=== PATIENT | female | born 1940 | race Caucasian/White ===

== ENCOUNTER 2017-10-26 18:08 | Emergency (ER) | payer MEDICARE ==
[~2017-10-26] VITALS: Ht 154.9 cm; Wt 57.0 kg
[~2017-10-26 18:08] MED LIST: AMLO5TAB2 PO; ANAS1TAB PO; ASA PO; CALC1CAP8 PO; CHOL200024 PO; CLON1TAB23 PO; DOCU-131 PO; ESCI20TA PO; EZET10TA18 PO; HYDR-3237 PO; VIT1CAPS11 PO; VITAMIN B12 PO; [UNRECOGNIZED DRUG - REMARK] PO; [UNRECOGNIZED DRUG - REMARK] PO
[2017-10-26] MEDS ORDERED: KETOROLAC 30 MG/1 ML ONE (19:49)
[2017-10-26] MEDS ORDERED: KETOROLAC 30 MG/1 ML IM ONE (20:30)
[2017-10-26 21:40] VITALS: BP 127/61
== END 2017-10-26 21:41 | disposition home or self-care (01) ==
LOC: ED 21:32
DX: S51.811A Laceration without foreign body of right forearm, initial encounter (principal); S20.212A Contusion of left front wall of thorax, initial encounter; S16.1XXA Strain of muscle, fascia and tendon at neck level, initial encounter; S00.81XA Abrasion of other part of head, initial encounter; M06.9 Rheumatoid arthritis, unspecified; I10 Essential (primary) hypertension; W01.0XXA Fall on same level from slipping, tripping and stumbling without subsequent striking against object, initial encounter; Y93.89 Activity, other specified; Y92.89 Other specified places as the place of occurrence of the external cause; Y99.8 Other external cause status
CPT/HCPCS: 70450; 71111; 72125; 73090; 96372; 99284; J1885

== ENCOUNTER 2018-01-08 11:58 | Inpatient (IN) | payer MEDICARE ==
[~2018-01-08] VITALS: Ht 157.5 cm; Wt 54.8 kg
[2018-01-08] MEDS ORDERED: SODIUM CHLORIDE 0.9% 1,000ML IVBOLUS ONE (13:00)
[2018-01-08 13:04] LABS: MEAN CORPUSCULAR HEMOGLOBIN 26.3 pg (27.0-34.8); MEAN CORPUSCULAR HGB CONC 32.3 g/dL (32.4-35.8); MEAN CORPUSCULAR VOLUME 81.4 fL (80-100); MEAN PLATELET VOLUME 7.4 fL (7.4-10.4); PLATELET COUNT 171 x10^3/uL (130-400); RED BLOOD COUNT 6.01 x10^6/uL (3.82-5.3); RED CELL DISTRIBUTION WIDTH 15.1 % (9.6-15.2)
[2018-01-08 13:15] LABS: ALANINE AMINOTRANSFERASE 43 U/L (12-78); ALBUMIN 3.7 g/dL (3.4-5.0); ANION GAP 12 mmol/L (5-15); CHLORIDE 105 mmol/L (98-107)
[2018-01-08 13:17] LABS: ALKALINE PHOSPHATASE 169 U/L (45-117); BILIRUBIN,TOTAL 0.6 mg/dL (0.2-1.0); CREATININE 1.08 mg/dL (0.55-1.02); TOTAL PROTEIN 8.4 g/dL (6.4-8.2)
[2018-01-08 13:19] LABS: TROPONIN I < 0.015 ng/mL (0.000-0.045)
[2018-01-08 13:34] LABS: MD YES
[2018-01-08 13:35] LABS: BANDS%(MANUAL) 2 % (0-7)
[2018-01-08 13:37] LABS: <PLATELET ESTIMATE> ADEQUATE; <PLT MORPHOLOGY> NORMAL PLT MORPH; ANISOCYTOSIS 1+; EOS#(MANUAL) 0.05 x10^3/uL (0.0-0.4); EOS% (MANUAL) 1 % (1-7); LYMPH#(MANUAL) 3.28 x10^3/uL (1-3.4); LYMPHS% (MANUAL) 67 % (22-44); MICROCYTOSIS 1+; MONOS% (MANUAL) 2 % (2-9); REACTIVE LYMPHS # (MANUAL) 0.05 x10^3/uL (0-0); REACTIVE LYMPHS % (MANUAL) 1 % (0-0); SEG#(MANUAL) 1.32 x10^3/uL (1.8-6.8); SEGS% (MANUAL) 27 % (42-75)
[2018-01-08] MEDS ORDERED: LORazepam 2 MG/ML, 1ML ONE (13:42)
[2018-01-08] MEDS ORDERED: LORazepam 2 MG/ML, 1ML IVPush ONE (14:00)
[2018-01-08] MEDS ORDERED: SODIUM CHLORIDE FLUSH 10ML SYR IVF ONE (14:00)
[2018-01-08 14:17] LABS: FOLATE LEVEL 17.5 ng/mL (3.1-17.5)
[2018-01-08 15:17] LABS: MICROSCOPIC INDICATED
[2018-01-08 15:18] LABS: CULTURE INDICATED? YES
[2018-01-08 16:00] VITALS: BP 117/69
[2018-01-08] MEDS ORDERED: ONDANSETRON 2MG/ML, 2ML IVPush PRN (16:00)
[2018-01-08] MEDS ORDERED: DEXTROSE 50%, 50ML SYRINGE IVPush PRN (16:00)
[2018-01-08] MEDS ORDERED: POLYETHYLENE GLYCOL 17 GM PACKET PO PRN (16:00)
[2018-01-08] MEDS ORDERED: LABETALOL 5MG/ML, 20ML IVPush PRN (16:00)
[2018-01-08] MEDS ORDERED: DEXTROSE 4 GM TAB.CHEW PO PRN (16:00)
[2018-01-08] MEDS ORDERED: GLUCAGON 1 MG IM PRN (16:00)
[2018-01-08] MEDS ORDERED: ONDANSETRON ODT 4 MG PO PRN (16:00)
[2018-01-08] MEDS ORDERED: DOCUSATE 100 MG CAPSULE PO PRN (16:00)
[2018-01-08] MEDS ORDERED: ENALAPRILAT 1.25 MG/ML, 2ML IVPush PRN (16:00)
[2018-01-08] MEDS ORDERED: ACETAMINOPHEN 325 MG TABLET PO PRN (16:00)
[2018-01-08] MEDS: HEPARIN 5,000 UNITS/ML, 1ML SQ SCH (16:37)
[2018-01-08] MEDS: D5%-0.45% NACL 1,000 ML IV SCH (16:40)
[2018-01-08] MEDS ORDERED: OMNIPAQUE 350 MG/ML, 100ML BOTTLE ONE (18:23)
[2018-01-08 19:08] VITALS: BP 122/79
[2018-01-08] MEDS ORDERED: AMLODIPINE 5 MG TABLET PO SCH (21:00)
[2018-01-08] MEDS: SODIUM CHLORIDE FLUSH 10ML SYR IVF SCH (21:03)
[2018-01-09] MEDS: HEPARIN 5,000 UNITS/ML, 1ML SQ SCH ×2 (00:11→07:57)
[2018-01-09 01:24] VITALS: BP 110/76
[2018-01-09] MEDS: D5%-0.45% NACL 1,000 ML IV SCH (03:17)
[2018-01-09 05:53] LABS: ANION GAP 7 mmol/L (5-15); CALCIUM 7.3 mg/dL (8.5-10.1); CHLORIDE 108 mmol/L (98-107); CREATININE 0.67 mg/dL (0.55-1.02)
[2018-01-09 06:21] LABS: BASOPHILS # (AUTO) 0.02 x10^3/uL (0-0.1); BASOPHILS % (AUTO) 1 % (0-1); EOSINOPHILS # (AUTO) 0.09 x10^3/uL (0-0.4); EOSINOPHILS % (AUTO) 2 % (1-7); LYMPHOCYTES # (AUTO) 2.66 x10^3/uL (1-3.4); LYMPHOCYTES % (AUTO) 72 % (22-44); MD NO; MEAN CORPUSCULAR HEMOGLOBIN 27.2 pg (27.0-34.8); MEAN CORPUSCULAR HGB CONC 32.6 g/dL (32.4-35.8); MEAN CORPUSCULAR VOLUME 83.4 fL (80-100); MEAN PLATELET VOLUME 7.9 fL (7.4-10.4); MONOCYTES # (AUTO) 0.44 x10^3/uL (0.2-0.8); MONOCYTES % (AUTO) 12 % (2-9); NEUTROPHILS # (AUTO) 0.47 x10^3/uL (1.8-6.8); NEUTROPHILS % (AUTO) 13 % (42-75); PLATELET COUNT 70 x10^3/uL (130-400); RED BLOOD COUNT 3.82 x10^6/uL (3.82-5.3); RED CELL DISTRIBUTION WIDTH 15.4 % (9.6-15.2)
[2018-01-09 06:59] VITALS: BP 111/76
[2018-01-09] MEDS ORDERED: POTASSIUM CHLORIDE 20 MEQ TAB.ER.PRT PO ONE (07:30)
[2018-01-09] MEDS ORDERED: MAGNESIUM OXIDE 400 MG TABLET PO ONE (07:30)
[2018-01-09] MEDS ORDERED: INSULIN LISPRO 100 UNITS/ML, PEN SQ-INSULIN SCH (07:30)
[2018-01-09] MEDS: SODIUM CHLORIDE FLUSH 10ML SYR IVF SCH (07:58)
[2018-01-09] MEDS ORDERED: MULTIVITS,STRESS FORMULA 1 TABLET PO SCH (09:00)
[2018-01-09] MEDS ORDERED: CALCIUM/VITAMIN D3 250-125 TABLET PO SCH (09:00)
[2018-01-09] MEDS ORDERED: SULFAMETH./TRIMETHOPRIM DS 800MG/160MG TABLET PO SCH (09:00)
[2018-01-09] MEDS ORDERED: CITALOPRAM 20 MG TABLET PO SCH (09:00)
[2018-01-09] MEDS ORDERED: ASPIRIN 81 MG TABLET EC PO SCH (09:00)
[2018-01-09] MEDS ORDERED: EZETIMIBE 10 MG TABLET PO SCH (09:00)
[2018-01-09] MEDS ORDERED: CYANOCOBALAMIN 1,000 MCG TABLET PO SCH (09:00)
[2018-01-09 12:32] VITALS: BP 102/70
[2018-01-09] MEDS ORDERED: CLON1TAB23 PO (14:35)
[2018-01-09] MEDS ORDERED: SULF-169 PO (15:00)
[2018-01-09 15:44] VITALS: BP 108/72
== END 2018-01-09 15:30 | disposition home or self-care (01) | DRG 683 ==
LOC: ED 14:12 → EDIP 14:52 → 4NOR 15:50
PROVIDERS: ADMIT Family Medicine; ATTEND Family Medicine
DX: N17.9 Acute kidney failure, unspecified (principal); F13.239 Sedative, hypnotic or anxiolytic dependence with withdrawal, unspecified; E86.0 Dehydration; M06.9 Rheumatoid arthritis, unspecified; N39.0 Urinary tract infection, site not specified; R62.7 Adult failure to thrive; E78.5 Hyperlipidemia, unspecified; F32.9 Major depressive disorder, single episode, unspecified; F17.200 Nicotine dependence, unspecified, uncomplicated; F41.1 Generalized anxiety disorder; R73.9 Hyperglycemia, unspecified; I10 Essential (primary) hypertension; Z85.3 Personal history of malignant neoplasm of breast; Z90.13 Acquired absence of bilateral breasts and nipples; Z68.22 Body mass index [BMI] 22.0-22.9, adult; R63.4 Abnormal weight loss
CPT/HCPCS: 36415; 71045; 71260; 74177; 80048; 80053; 81001; 82607; 82746; 82962; 83735; 84443; 84484; 85025; 87086; 87186; 93005; 96361; 96374; J1644; Q9967; J2060; J7030

== ENCOUNTER 2019-03-13 09:52 | Inpatient (IN) | payer MEDICARE ==
[~2019-03-13] VITALS: Ht 157.5 cm; Wt 58.0 kg
[~2019-03-13 09:52] MED LIST changes: +AMLO-150 PO; -AMLO5TAB2 PO; +SULF-169 PO
--- NOTE | 2019-03-13 10:20 | NUR ---
PT NOTED TO HAVE SWELLING AND ERYTHEMA RIGHT ELBOW. PT STATES SHE FELL DOWN A FEW STEPS LAST NIGHT. DENIES PAIN ELSEWHERE
[2019-03-13] MEDS ORDERED: ONDANSETRON 2MG/ML, 2ML IVPush ONE (10:30)
[2019-03-13] MEDS ORDERED: HYDROmorphone 2 MG/ML, 1ML IVPush PRN (10:30)
[2019-03-13] MEDS ORDERED: DIPH,PERTUSS(ACELL),TET VAC/PF 0.5 ML IM-VACC ONE ×2 (10:30→10:59)
[2019-03-13] MEDS ORDERED: HYDROmorphone 2 MG/ML, 1ML ONE (10:58)
[2019-03-13] MEDS ORDERED: ONDANSETRON 2MG/ML, 2ML ONE (10:58)
[2019-03-13 11:01] LABS: BASOPHILS # (AUTO) 0.02 x10^3/uL (0-0.1); BASOPHILS % (AUTO) 1 % (0-1); EOSINOPHILS # (AUTO) 0.07 x10^3/uL (0-0.4); EOSINOPHILS % (AUTO) 2 % (1-7); LYMPHOCYTES # (AUTO) 1.58 x10^3/uL (1-3.4); LYMPHOCYTES % (AUTO) 42 % (22-44); MD NO; MEAN CORPUSCULAR HEMOGLOBIN 26.7 pg (27.0-34.8); MEAN CORPUSCULAR HGB CONC 33.5 g/dL (32.4-35.8); MEAN CORPUSCULAR VOLUME 79.7 fL (80-100); MEAN PLATELET VOLUME 7.4 fL (7.4-10.4); MONOCYTES % (AUTO) 11 % (2-9); NEUTROPHILS # (AUTO) 1.68 x10^3/uL (1.8-6.8); NEUTROPHILS % (AUTO) 45 % (42-75); PLATELET COUNT 108 x10^3/uL (130-400); RED BLOOD COUNT 4.72 x10^6/uL (3.82-5.3); RED CELL DISTRIBUTION WIDTH 17.8 % (9.6-15.2)
[2019-03-13 11:09] LABS: ALBUMIN 3.3 g/dL (3.4-5.0); ANION GAP 4 mmol/L (5-15); CALCIUM 8.6 mg/dL (8.5-10.1); CHLORIDE 111 mmol/L (98-107)
[2019-03-13 11:13] LABS: INTERNATIONAL NORMALIZED RATIO 1.02 (0.93-1.1); PROTHROMBIN TIME 10.7 Seconds (9.6-11.5)
--- NOTE | 2019-03-13 11:18 | NUR ---
SON AT BEDSIDE. DISCUSSING RESULTS OF XRAY AND NEED FOR ADMISSION AND SURGERY.
[2019-03-13] MEDS ORDERED: BACITRACIN ZINC OINT 500U/GM, 0.9 GM ONE (11:52)
--- NOTE | 2019-03-13 11:57 | NUR ---
REPORT TO PAOLO HOLLAND. PT TO BE TRANSPORTED AFTER SPLINTING
[2019-03-13] MEDS ORDERED: DOCUSATE 100 MG CAPSULE PO PRN (12:00)
--- NOTE | 2019-03-13 12:02 | NUR ---
TECH AT BEDSIDE SPLINTING RIGHT ARM
[2019-03-13 12:36] VITALS: BP 98/61
[2019-03-13] MEDS: LACTATED RINGERS 1,000 ML IV SCH ×2 (13:29→23:28)
[2019-03-13] MEDS: OXYcodone/APAP 5/325MG TABLET PO PRN ×2 (15:48→23:58)
[2019-03-13 19:26] VITALS: BP 99/67
[2019-03-13] MEDS: ACETAMINOPHEN 325 MG TABLET PO PRN (20:05)
[2019-03-13] MEDS: AMLODIPINE 5 MG TABLET PO SCH (20:06)
[2019-03-14 03:29] VITALS: BP 103/69
[2019-03-14] MEDS: ACETAMINOPHEN 325 MG TABLET PO PRN (03:46)
[2019-03-14 07:03] VITALS: BP 113/75
[2019-03-14] MEDS: EZETIMIBE 10 MG TABLET PO SCH (08:05)
[2019-03-14] MEDS: OXYcodone/APAP 5/325MG TABLET PO PRN ×3 (09:55→19:31)
[2019-03-14] MEDS: LACTATED RINGERS 1,000 ML IV SCH ×2 (09:57→19:33)
[2019-03-14 12:19] VITALS: BP 118/66
[2019-03-14] MEDS: AMLODIPINE 5 MG TABLET PO SCH (20:36)
[2019-03-14 20:37] VITALS: BP 118/69
[2019-03-15 03:02] VITALS: BP 123/71
[2019-03-15] MEDS: LACTATED RINGERS 1,000 ML IV SCH (03:15)
[2019-03-15] MEDS: OXYcodone/APAP 5/325MG TABLET PO PRN ×4 (03:15→21:29)
[2019-03-15] MEDS ORDERED: ALENDRONATE 70 MG TABLET PO SCH (06:30)
[2019-03-15 06:50] VITALS: BP 105/62
[2019-03-15 07:54] LABS: BASOPHILS # (AUTO) 0.02 x10^3/uL (0-0.1); BASOPHILS % (AUTO) 1 % (0-1); EOSINOPHILS # (AUTO) 0.11 x10^3/uL (0-0.4); EOSINOPHILS % (AUTO) 4 % (1-7); LYMPHOCYTES # (AUTO) 1.61 x10^3/uL (1-3.4); LYMPHOCYTES % (AUTO) 59 % (22-44); MD SCAN; MEAN CORPUSCULAR HEMOGLOBIN 26.7 pg (27.0-34.8); MEAN CORPUSCULAR HGB CONC 32.8 g/dL (32.4-35.8); MEAN CORPUSCULAR VOLUME 81.2 fL (80-100); MEAN PLATELET VOLUME 7.6 fL (7.4-10.4); MONOCYTES # (AUTO) 0.21 x10^3/uL (0.2-0.8); MONOCYTES % (AUTO) 8 % (2-9); NEUTROPHILS # (AUTO) 0.79 x10^3/uL (1.8-6.8); NEUTROPHILS % (AUTO) 29 % (42-75); PLATELET COUNT 75 x10^3/uL (130-400); RED BLOOD COUNT 3.54 x10^6/uL (3.82-5.3); RED CELL DISTRIBUTION WIDTH 17.5 % (9.6-15.2)
[2019-03-15] MEDS: EZETIMIBE 10 MG TABLET PO SCH (08:22)
[2019-03-15 12:15] VITALS: BP 114/61
[2019-03-15 20:35] VITALS: BP 110/69
[2019-03-15] MEDS: AMLODIPINE 5 MG TABLET PO SCH (21:00)
[2019-03-16 01:35] VITALS: BP 126/83
[2019-03-16] MEDS: OXYcodone/APAP 5/325MG TABLET PO PRN ×2 (01:54→12:29)
[2019-03-16 07:37] VITALS: BP 108/66
[2019-03-16] MEDS ORDERED: LORazepam 2 MG/ML, 1ML IV PRN ×5 (08:00)
[2019-03-16] MEDS ORDERED: THIAMINE 200 MG in DEXTROSE 5% 50 ML IVPB ONE (08:00)
[2019-03-16] MEDS ORDERED: POTASSIUM CHLORIDE 20 MEQ in LACTATED RINGERS 1,000 ML IV SCH (08:00)
[2019-03-16] MEDS ORDERED: FOLIC ACID 5 MG/ML IM ONE (08:00)
[2019-03-16] MEDS: EZETIMIBE 10 MG TABLET PO SCH (08:04)
[2019-03-16] MEDS ORDERED: CHOLECALCIFEROL 5,000u TAB PO SCH (09:00)
[2019-03-16 12:14] VITALS: BP 119/81
[2019-03-16] MEDS ORDERED: OXYC1TAB7 PO (12:41)
[2019-03-16] MEDS ORDERED: CHOL500015 PO (12:41)
[2019-03-16] MEDS ORDERED: ALEN70TA6 PO (12:41)
== END 2019-03-16 13:30 | disposition home or self-care (01) | DRG 543 ==
LOC: ED 10:57 → 4NOR 11:22 → DCLOUNGE 03-16 13:05
PROVIDERS: ADMIT Family Medicine; ATTEND Family Medicine
DX: M80.021A Age-related osteoporosis with current pathological fracture, right humerus, initial encounter for fracture (principal); D61.818 Other pancytopenia; F10.239 Alcohol dependence with withdrawal, unspecified; E44.0 Moderate protein-calorie malnutrition; E78.00 Pure hypercholesterolemia, unspecified; Y90.9 Presence of alcohol in blood, level not specified; F17.200 Nicotine dependence, unspecified, uncomplicated; F41.1 Generalized anxiety disorder; I10 Essential (primary) hypertension; K74.60 Unspecified cirrhosis of liver; M06.9 Rheumatoid arthritis, unspecified; S61.214A Laceration without foreign body of right ring finger without damage to nail, initial encounter; Z90.710 Acquired absence of both cervix and uterus; Z85.3 Personal history of malignant neoplasm of breast; W10.9XXA Fall (on) (from) unspecified stairs and steps, initial encounter; Y93.89 Activity, other specified; Y92.89 Other specified places as the place of occurrence of the external cause; Y99.8 Other external cause status; Z68.23 Body mass index [BMI] 23.0-23.9, adult
CPT/HCPCS: 36415; 80048; 80307; 82040; 82306; 85025; 85610; 90471; 90715; 93005; 96374; 96375; 99285; G0378; J1170; J2405; J3411; J3480; J7120

== ENCOUNTER 2019-03-18 13:27 | Inpatient (IN) | payer MEDICARE ==
[~2019-03-18] VITALS: Ht 157.5 cm; Wt 64.2 kg
[~2019-03-18 13:27] MED LIST changes: +ALEN70TA6 PO; +CHOL500015 PO; +OXYC1TAB7 PO
[2019-03-18 14:07] VITALS: BP 113/77
[2019-03-18] MEDS ORDERED: LACTATED RINGERS 1,000 ML IV SCH (14:12)
[2019-03-18] MEDS ORDERED: PLEASE ENTER HEIGHT AND WEIGHT MC SCH (14:30)
[2019-03-18] MEDS ORDERED: OXYC1TAB7 PO (15:51)
[2019-03-18] MEDS ORDERED: ASPI-515 PO (15:51)
[2019-03-18] MEDS ORDERED: EZET10TA18 PO (15:51)
[2019-03-18] MEDS ORDERED: ALEN70TA6 PO (15:51)
[2019-03-18] MEDS ORDERED: CHOL20002 PO (15:51)
[2019-03-18] MEDS ORDERED: CLON1TAB23 PO (15:51)
[2019-03-18] MEDS ORDERED: BUPIVACAINE LIPOSOME/PF 10ML INFIL ONE (16:00)
[2019-03-18] MEDS ORDERED: FENTANYL PF 250 MCG/5ML ONE ×2 (16:02→18:08)
[2019-03-18] MEDS ORDERED: BUPIVACAINE/PF-EPI 0.5% 1:200K ONE (16:27)
[2019-03-18] MEDS ORDERED: ONDANSETRON 2MG/ML, 2ML ONE (16:53)
[2019-03-18] MEDS ORDERED: ROCURONIUM 10MG/ML,5ML ONE (16:53)
[2019-03-18] MEDS ORDERED: DEXAMETHASONE 4 MG/ML, 1ML ONE (16:53)
[2019-03-18] MEDS ORDERED: PROPOFOL 10 MG/ML, 20ML ONE (16:53)
[2019-03-18] MEDS ORDERED: SODIUM CHLORIDE 0.9% 1,000 ML IV SCH (16:53)
[2019-03-18] MEDS ORDERED: morphine SULFATE 10 MG/ML, 1ML IVPush PRN (17:00)
[2019-03-18] MEDS: NICOTINE 7 MG/24 HR PATCH.TD24 TD SCH (17:00)
[2019-03-18] MEDS ORDERED: hydrALAzine 20 MG/ML, 1ML IVPush PRN (17:00)
[2019-03-18] MEDS ORDERED: ONDANSETRON 2MG/ML, 2ML IVPush PRN (17:00)
[2019-03-18] MEDS ORDERED: hydrALAzine 20 MG/ML, 1ML IV PRN (18:30)
[2019-03-18] MEDS ORDERED: ALBUTEROL SULFATE 2.5 MG/3 ML NPPB PRN (18:30)
[2019-03-18] MEDS ORDERED: HALOPERIDOL 5 MG/ML IV PRN (18:30)
[2019-03-18] MEDS ORDERED: OXYcodone 5 MG/5 ML ORAL.SOL UDC PO PRN (18:30)
[2019-03-18] MEDS ORDERED: LABETALOL 5MG/ML, 20ML IV PRN (18:30)
[2019-03-18] MEDS ORDERED: PROMETHAZINE 25 MG/ML, 1ML IV PRN (18:30)
[2019-03-18] MEDS ORDERED: VANCOMYCIN 1,000 MG ONE (18:40)
[2019-03-18] MEDS ORDERED: OXYcodone 5 MG/5 ML ORAL.SOL UDC ONE (19:16)
[2019-03-18] MEDS ORDERED: FENTANYL PF 100 MCG/2ML ONE (19:16)
[2019-03-18] MEDS ORDERED: HYDROmorphone 2 MG/ML, 1ML ONE (19:16)
[2019-03-18] MEDS: FENTANYL PF 100 MCG/2ML IV PRN ×2 (19:21→19:36)
[2019-03-18] MEDS: HYDROmorphone 2 MG/ML, 1ML IVPush PRN ×2 (19:22→19:36)
[2019-03-18] MEDS ORDERED: OXYcodone/APAP 5/325MG TABLET PO PRN (23:00)
[2019-03-19 00:05] VITALS: BP 93/59
[2019-03-19] MEDS: OXYcodone/APAP 5/325MG TABLET PO PRN ×5 (00:34→22:16)
[2019-03-19] MEDS: CEFAZOLIN PMX 1GM/50ML 50 ML IV SCH ×2 (01:04→09:16)
[2019-03-19] MEDS: LACTATED RINGERS 1,000 ML IV SCH ×2 (02:34→14:52)
[2019-03-19 04:04] VITALS: BP 83/52
[2019-03-19 04:18] VITALS: BP 93/59
[2019-03-19 05:18] LABS: ALANINE AMINOTRANSFERASE 12 U/L (12-78); ALBUMIN 2.3 g/dL (3.4-5.0); ANION GAP 9 mmol/L (5-15); CALCIUM 7.3 mg/dL (8.5-10.1); CHLORIDE 111 mmol/L (98-107); CREATININE 0.62 mg/dL (0.55-1.02)
[2019-03-19 05:20] LABS: ALKALINE PHOSPHATASE 88 U/L (45-117); BILIRUBIN,TOTAL 0.7 mg/dL (0.2-1.0); TOTAL PROTEIN 5.3 g/dL (6.4-8.2)
[2019-03-19 07:00] VITALS: BP 104/70
[2019-03-19] MEDS: EZETIMIBE 10 MG TABLET PO SCH (09:00)
[2019-03-19] MEDS: CHOLECALCIFEROL 5,000u TAB PO SCH (09:17)
[2019-03-19] MEDS: ASPIRIN 81 MG TABLET CHEW PO SCH (09:17)
[2019-03-19] MEDS: morphine SULFATE 10 MG/ML, 1ML IV PRN ×3 (11:18→19:59)
[2019-03-19 12:03] VITALS: BP 115/74
[2019-03-19] MEDS ORDERED: MAGNESIUM SULFATE PMX 2GM/50ML 50 ML IV ONE (16:00)
[2019-03-19] MEDS: NICOTINE 7 MG/24 HR PATCH.TD24 TD SCH (17:00)
[2019-03-19] MEDS: METOPROLOL TARTRATE 25 MG TABLET PO SCH (18:00)
[2019-03-19 19:44] VITALS: BP 91/58
[2019-03-20 01:09] VITALS: BP 104/69
[2019-03-20] MEDS: morphine SULFATE 10 MG/ML, 1ML IV PRN ×3 (01:19→17:34)
[2019-03-20] MEDS: OXYcodone/APAP 5/325MG TABLET PO PRN ×5 (02:52→19:55)
[2019-03-20] MEDS: LACTATED RINGERS 1,000 ML IV SCH (05:10)
[2019-03-20 05:53] LABS: ANION GAP 5 mmol/L (5-15); CALCIUM 7.7 mg/dL (8.5-10.1); CHLORIDE 108 mmol/L (98-107); CREATININE 0.62 mg/dL (0.55-1.02)
[2019-03-20] MEDS: METOPROLOL TARTRATE 25 MG TABLET PO SCH ×2 (06:00→17:39)
[2019-03-20 06:48] VITALS: BP 105/71
[2019-03-20 08:25] VITALS: BP 94/61
[2019-03-20] MEDS: EZETIMIBE 10 MG TABLET PO SCH (08:35)
[2019-03-20] MEDS: ASPIRIN 81 MG TABLET CHEW PO SCH (08:35)
[2019-03-20] MEDS: CHOLECALCIFEROL 5,000u TAB PO SCH (08:35)
[2019-03-20] MEDS ORDERED: POTASSIUM PHOSPHATE 22 MEQ in SODIUM CHLORIDE 0.9% 500 ML IV ONE (09:30)
[2019-03-20] MEDS: MAGNESIUM OXIDE 400 MG TABLET PO SCH ×2 (09:49→21:18)
[2019-03-20] MEDS ORDERED: OXYC5TAB3 PO (11:55)
[2019-03-20] MEDS ORDERED: METO25TA35 PO (11:55)
[2019-03-20] MEDS ORDERED: MAGN400T50 PO (11:55)
[2019-03-20] MEDS ORDERED: POLY17PO5 PO (12:00)
[2019-03-20 12:01] VITALS: BP 110/69
[2019-03-20] MEDS: NICOTINE 7 MG/24 HR PATCH.TD24 TD SCH (15:34)
[2019-03-20 17:37] VITALS: BP 105/59
[2019-03-20 19:48] VITALS: BP 107/73
[2019-03-20] MEDS ORDERED: SODIUM PHOSPHATE 30 MMOL in SODIUM CHLORIDE 0.9% 500 ML IV ONE (22:00)
[2019-03-21] MEDS: OXYcodone/APAP 5/325MG TABLET PO PRN ×3 (00:06→13:41)
[2019-03-21 00:08] VITALS: BP 107/68
[2019-03-21] MEDS: METOPROLOL TARTRATE 25 MG TABLET PO SCH (05:46)
[2019-03-21 07:06] VITALS: BP 130/93
[2019-03-21] MEDS: CHOLECALCIFEROL 5,000u TAB PO SCH (08:40)
[2019-03-21] MEDS: ASPIRIN 81 MG TABLET CHEW PO SCH (08:40)
[2019-03-21] MEDS: MAGNESIUM OXIDE 400 MG TABLET PO SCH (08:40)
[2019-03-21] MEDS: EZETIMIBE 10 MG TABLET PO SCH (10:34)
[2019-03-21] MEDS ORDERED: MAGNESIUM HYDROXIDE 8%, 30ML UDC PO PRN (11:00)
[2019-03-21] MEDS ORDERED: DOCUSATE 100 MG CAPSULE PO SCH (11:00)
[2019-03-21] MEDS ORDERED: BISACODYL 10 MG SUPP PR PRN (11:00)
[2019-03-21] MEDS ORDERED: POLYETHYLENE GLYCOL 17 GM PACKET NG PRN (11:00)
[2019-03-21 13:02] VITALS: BP 109/67
[2019-03-21] MEDS ORDERED: PHOS250T3 PO (15:54)
[2019-03-21] MEDS ORDERED: NEUTRA PHOS K 250 MG TABLET PO SCH (16:00)
[2019-03-21] MEDS: NICOTINE 7 MG/24 HR PATCH.TD24 TD SCH (16:45)
[2019-03-21 17:50] VITALS: BP 113/65
[2019-03-21] MEDS ORDERED: EZETIMIBE 10 MG TABLET PO SCH (21:00)
[2019-03-25] MEDS ORDERED: ALENDRONATE 70 MG TABLET PO SCH (06:30)
== END 2019-03-21 18:15 | disposition home health service (06) | DRG 483 ==
LOC: OR 13:27 → ORIP 16:53 → SUATTDRO 16:53 → 4NOR 22:10
PROVIDERS: ADMIT Internal Medicine; ATTEND Internal Medicine
PROC: 3E0T3BZ Introduction of Anesthetic Agent into Peripheral Nerves and Plexi, Percutaneous Approach (ICD-10-PCS; 2019-03-18)
PROC: 01N40ZZ Release Ulnar Nerve, Open Approach (ICD-10-PCS; 2019-03-18)
PROC: 0RRL0JZ Replacement of Right Elbow Joint with Synthetic Substitute, Open Approach (ICD-10-PCS; principal; 2019-03-18 16:00)
DX: S42.411A Displaced simple supracondylar fracture without intercondylar fracture of right humerus, initial encounter for closed fracture (principal); D61.818 Other pancytopenia; E78.5 Hyperlipidemia, unspecified; E83.39 Other disorders of phosphorus metabolism; E83.42 Hypomagnesemia; I10 Essential (primary) hypertension; M81.0 Age-related osteoporosis without current pathological fracture; R09.02 Hypoxemia; W10.9XXA Fall (on) (from) unspecified stairs and steps, initial encounter; Y93.89 Activity, other specified; Y92.89 Other specified places as the place of occurrence of the external cause; Y99.8 Other external cause status; W18.09XA Striking against other object with subsequent fall, initial encounter; Z85.3 Personal history of malignant neoplasm of breast; Z87.891 Personal history of nicotine dependence; Z90.12 Acquired absence of left breast and nipple; Z90.49 Acquired absence of other specified parts of digestive tract; Z90.710 Acquired absence of both cervix and uterus; Z88.8 Allergy status to other drugs, medicaments and biological substances
CPT/HCPCS: 36415; 80048; 80053; 83735; 84100; 84132; 85014; 85018; C1713; G0378; J0690; J1100; J1170; J2405; J2704; J3010; J3370; C1776; J2270; J3475; J7040; J7120